=== PATIENT | female | born 1970 | race Caucasian/White ===

== ENCOUNTER 2017-12-17 15:22 | Outpatient (CLI) | payer OTHER ==
--- NOTE | 2017-12-18 09:20 | XRAY Report ---
Procedure Date: 12/17/2017 Accession Number: [id number] / [id number] Procedure: XRS - Hip w/Pelvis 2-3V RT CPT Code: FULL RESULT: EXAM: Hip w/Pelvis 2-3V RT DATE: 12/17/2017 3:47 PM CLINICAL HISTORY: PAIN R HIP COMPARISON: None. TECHNIQUE: 1 view of the pelvis and 1 view of the hip. FINDINGS: Bones: Normal. No fracture or bone lesion. Joints: The bilateral hip, pubis symphysis, and sacroiliac joints are preserved. Soft Tissues: Normal. No soft tissue swelling. Note is made of an intrauterine device projecting over the pelvis. IMPRESSION: Normal pelvis and hip radiography. [facility]
== END 2017-12-17 15:23 | disposition home or self-care (01) ==
LOC: DI.S 15:22
PROVIDERS: ATTEND Internal Medicine
DX: M25.551 Pain in right hip (principal)

== ENCOUNTER 2021-06-24 06:49 | Emergency (ER) | payer OTHER ==
[2021-06-24 07:01] VITALS: BP 136/74
--- NOTE | 2021-06-24 07:23 | ED Physician Documentation ---
History of Present Illness - Stated complaint Stated Complaint: FEMALE - Chief complaint Chief Complaint: General - History obtained from History obtained from: Patient - History of Present Illness Timing: Today Pain level max: 0 Pain level now: 0 - Additonal information Additional information: She is a 50-year-old female who states that she works on the [employer] and that she had a mandated random drug test today and she could not produce a urine sample. She states that she is here to get a diagnosis of "shy bladder syndrome". She states that she does have a history of anxiety, but is not on medications. She has not had difficulty using public restrooms in the past. Review of Systems Constitutional: denies: Fever, Chills Respiratory: denies: Cough GI: denies: Vomiting, Diarrhea : denies: Dysuria, Frequency, Hesitancy, Incontinent Skin: denies: Rash Musculoskeletal: denies: Neck pain, Back pain Neurologic: denies: Headache PD PAST MEDICAL HISTORY - Past Medical History Past Medical History: No - Past Surgical History Past Surgical History: No - Allergies Allergies/Adverse Reactions: Allergies Allergy/AdvReac Type Severity Reaction Status Date / Time No Known Drug Allergies Allergy Verified 06/24/21 07:00 - Living Situation Living Arrangement: reports: At home PD ED PE NORMAL - Vitals Vital signs reviewed: Yes - General General: Alert and oriented X 3, No acute distress - HEENT HEENT: Moist mucous membranes - Respiratory Respiratory: No respiratory distress - Derm Derm: Warm and dry - Neuro Neuro: Alert and oriented X 3 - Psych Psych: Normal mood, Normal affect Results - Vitals Vitals: Vital Signs - 24 hr 06/24/21 06:58 Temperature 36.4 C L Heart Rate 83 Respiratory 20 Rate Blood Pressure 136/74 H O2 Saturation 98 Oxygen O2 Source Room air PD MEDICAL DECISION MAKING - ED course Complexity details: considered differential, d/w patient ED course: 50-year-old female states that she could not urinate for a drug test because she has been stressed about a family emergency. She has not had prior issues utilizing public restrooms. She is not on medication for anxiety. Does not appear to meet criteria for paruesis. There is no emergency medical condition at this time. The patient will contact her primary care provider today for further evaluation of this. This document was made in part using voice recognition software. While efforts are made to proofread this document, sound alike and grammatical errors may occur. Departure - Departure Disposition: 01 Home, Self Care Clinical Impression: Encounter for medical screening examination Condition: Good Instructions: ED Screening Exam Medical Nonurgent Follow-Up: JANET ACKERMAN ARNP [Primary Care Provider] - Within 3 Days Comments: Please contact your primary care doctor for further evaluation and care. Discharge Date/Time: 06/24/21 07:25
== END 2021-06-24 07:25 | disposition home or self-care (01) ==
LOC: ED 06:49
DX: Z02.89 Encounter for other administrative examinations (principal)
CPT/HCPCS: 99281

== ENCOUNTER 2022-09-12 08:02 | Outpatient (CLI) | payer OTHER ==
--- NOTE | 2022-09-13 10:04 | Mammography Report ---
BILATERAL DIGITAL SCREENING MAMMOGRAM 3D/2D: 09/12/2022 CLINICAL: Routine screening. Family history of breast cancer. No prior exams were available for comparison. There are scattered areas of fibroglandular density in both breasts (category b / 25%-50% glandular t issue). No significant masses, calcifications, or other findings are seen in either breast. IMPRESSION: NEGATIVE There is no mammographic evidence of malignancy. A 1 year screening mammogram is recommended. Based on the Tyrer Cuzick model (a risk assessment model) the patients lifetime risk is 8.6% and her 10 year risk is 2.1%. According to the ACR, ACS, and NCCN guidelines, an annual breast MRI exam kerrie g with mammogram is recommended if the patients lifetime risk is 20% or greater. This exam was interpreted at Station ID: [id number]. NOTE: For mammograms, a report in lay terms will be sent to the patient. Approximately 15% of breast malignancies will not be visualized mammographically. In the management of a palpable breast mass, a negative mammogram must not discourage biopsy of a clinically suspicious lesion. Electronically Signed By: Tommy Luna M.D. [facility] [place]:09/12/2022 16:43:09 letter sent: No_Letter ACR BI-RADS Category 1: Negative 3341F PARENCHYMAL PATTERN: (A) - The breast(s) demonstrate(s) scattered fibroglandular densities. BI-RADS CATEGORY: (1) - 1 Mammogram [id number] 1 year screening LATERALITY: (B)
== END 2022-09-12 08:03 | disposition home or self-care (01) ==
LOC: DI.S 08:02
PROVIDERS: ATTEND Nurse Practitioner Family
DX: Z12.31 Encounter for screening mammogram for malignant neoplasm of breast (principal); Z80.3 Family history of malignant neoplasm of breast

== ENCOUNTER 2023-04-20 07:34 | Outpatient (CLI) | payer OTHER | END 2023-04-20 07:35 | disposition EMS.NT | LOC: EMS 07:34 | DX: S99.911A Unspecified injury of right ankle, initial encounter (principal); W18.41XA Slipping, tripping and stumbling without falling due to stepping on object, initial encounter; Y93.01 Activity, walking, marching and hiking; Y92.814 Boat as the place of occurrence of the external cause; Y99.0 Civilian activity done for income or pay ==

== ENCOUNTER 2023-04-20 09:04 | Emergency (ER) | payer OTHER ==
[2023-04-20 09:41] VITALS: BP 135/88; O2SAT 98
--- NOTE | 2023-04-20 10:24 | XRAY Report ---
PROCEDURE: Ankle 3 View RT INDICATIONS: Trauma TECHNIQUE: 3 views of the ankle were acquired. COMPARISON: None. FINDINGS: Bones: Comminuted displaced distal fibular fracture extending to the articular surface with medial w idening of the ankle mortise. No suspicious bony lesions. Soft tissues: No tibiotalar joint effusion. Achilles tendon appears normal. IMPRESSION: Comminuted, displaced distal fibular fracture extending to the articular surface with medial widening of the ankle mortise. Reviewed by: Luis E Cervantes MD on 04/20/2023 10:23 AM PST Approved by: Luis E Cervantes MD on 04/20/2023 10:23 AM PST Station ID: [id number]
--- NOTE | 2023-04-20 11:43 | ED Physician Documentation ---
PD HPI LOWER EXT INJURY - Stated complaint Stated Complaint: RT ANKLE INJ - Chief complaint Chief Complaint: Trauma Ext - History obtained from History obtained from: Patient - Additional information Additional information: She was at work this morning, she works with [employer]. She slipped and fell and had an inversion injury of the right ankle. No other injuries. Pain is moderate declines pain medication on initial evaluation. PD PAST MEDICAL HISTORY - Past Medical History Past Medical History: No - Past Surgical History Past Surgical History: No - Present Medications Home Medications: Ambulatory Orders Medication Instructions Recorded Confirmed HYDROcod/ACETAM 5/325 [Thatcher 5/325] 1 - 2 tab PO Q6H PRN #15 tablet 04/20/23 Knee Scooter 1 unit TD ONCE #1 04/20/23 - Allergies Allergies/Adverse Reactions: Allergies Allergy/AdvReac Type Severity Reaction Status Date / Time No Known Drug Allergies Allergy Verified 06/24/21 07:00 - Social History Does the pt smoke?: Yes Smoking Status: Current every day smoker PD ED PE NORMAL - Vitals Vital signs reviewed: Yes - General General: Alert and oriented X 3, No acute distress - Extremities Extremities: Other (Tender over the lateral malleolus of the right ankle, no proximal fibular tenderness. No medial joint line tenderness. No foot tenderness. Normal pedal pulses and sensation.) - Neuro Neuro: Alert and oriented X 3, Normal speech Results - Vitals Vitals: Vital Signs - 24 hr 04/20/23 09:33 Temperature 36.5 C Heart Rate 70 Respiratory 16 Rate Blood Pressure 135/88 H O2 Saturation 98 Oxygen O2 Source Room air - Rads (name of study) Three-view x-ray of the right ankle demonstrates comminuted displaced distal fibular fracture with widening of the mortise Relevant Findings:: Final report received, EMP independent interpretation of test Procedures - Splint (location) - Minor Right leg Splint applied by: Physician Type of splint: Fiberglass, Posterior Other: Patient tolerated well, No complications, Neurovascular intact, Crutches provided Departure - Departure Disposition: 01 Home, Self Care Clinical Impression: Closed right ankle fracture Qualifiers: Encounter type: initial encounter Qualified Code(s): S82.891A - Other fracture of right lower leg, initial encounter for closed fracture Condition: Good Record reviewed to determine appropriate education?: Yes Instructions: ED Fx Ankle Lateral Malleolus Follow-Up: [facility] [Provider Group] Prescriptions: Knee Scooter 1 unit TD ONCE #1 HYDROcod/ACETAM 5/325 [Thatcher 5/325] 1 - 2 tab PO Q6H PRN #15 tablet PRN Reason: Pain Forms: PCP List, Activity restrictions
== END 2023-04-20 13:08 | disposition home or self-care (01) ==
LOC: ED 09:04
DX: S82.831A Other fracture of upper and lower end of right fibula, initial encounter for closed fracture (principal); W01.0XXA Fall on same level from slipping, tripping and stumbling without subsequent striking against object, initial encounter; Y92.814 Boat as the place of occurrence of the external cause; Y99.0 Civilian activity done for income or pay; F17.200 Nicotine dependence, unspecified, uncomplicated
CPT/HCPCS: 29515; 99283

== ENCOUNTER 2023-04-24 08:00 | Outpatient (CLI) | payer OTHER ==
--- NOTE | 2023-04-24 17:42 | XRAY Report ---
PROCEDURE: Ankle 3 View RT INDICATIONS: RIGHT ANKLE FRACTURE TECHNIQUE: 3 views of the ankle were acquired. COMPARISON: 04/20/2023. FINDINGS: Again noted is an oblique fracture involving the distal right fibula which appears in stable position from prior examination. No new acute osseous abnormality is seen. No significant degenerative change s are present. IMPRESSION: Stable appearance of the oblique distal right fibular fracture. Reviewed by: Jamal Sims MD on 04/24/2023 5:41 PM PST Approved by: Jamal Sims MD on 04/24/2023 5:41 PM PST Station ID: [id number]
== END 2023-04-24 23:59 | disposition home or self-care (01) ==
LOC: DI.WOS 08:00
PROVIDERS: ATTEND Orthopaedic Surgery
DX: S82.431D Displaced oblique fracture of shaft of right fibula, subsequent encounter for closed fracture with routine healing (principal)

== ENCOUNTER 2023-05-03 08:00 | Outpatient (CLI) | payer OTHER ==
--- NOTE | 2023-05-03 13:24 | XRAY Report ---
PROCEDURE: Ankle 3 View RT INDICATIONS: RIGHT ANKLE FRACTURE TECHNIQUE: 3 views of the ankle were acquired. COMPARISON: 04/24/2023. FINDINGS: Bones: Redemonstration of oblique fracture of the distal right fibula. This remains mildly displaced but stable in alignment. No significant periosteal reaction or callus formation at this time. Ankle mortise is preserved. Stable appearance of mild degenerative changes of the tibiotalar joint. Retroca lcaneal enthesophyte. Soft tissues: No tibiotalar joint effusion. Achilles tendon appears normal. IMPRESSION: Stable radiographic appearance of oblique distal right fibular fracture. Reviewed by: Adolph Richter MD on 05/03/2023 1:22 PM PST Approved by: Adolph Richter MD on 05/03/2023 1:22 PM PST Station ID: [id number]
== END 2023-05-03 23:59 | disposition home or self-care (01) ==
LOC: DI.WOS 08:00
PROVIDERS: ATTEND Orthopaedic Surgery
DX: S82.61XD Displaced fracture of lateral malleolus of right fibula, subsequent encounter for closed fracture with routine healing (principal)

== ENCOUNTER 2023-06-07 08:00 | Outpatient (CLI) | payer OTHER ==
--- NOTE | 2023-06-08 07:59 | XRAY Report ---
PROCEDURE: Ankle 3 View RT INDICATIONS: RIGHT ANKLE PAIN TECHNIQUE: 3 views of the ankle were acquired. COMPARISON: X-ray right ankle, 05/03/2023, 04/16/2023 and 04/20/2023. FINDINGS: Bones: There is a oblique fracture of the distal fibula with intra-articular involvement. The alignm ent is stable.. Ankle mortise is normally aligned. No suspicious bony lesions. Soft tissues: No tibiotalar joint effusion. Achilles tendon appears normal. IMPRESSION: Stable appearance of healing distal fibular fracture. Reviewed by: Nolberto Seay MD on 06/08/2023 7:58 AM PST Approved by: Nolberto Seay MD on 06/08/2023 7:58 AM PST Station ID: [id number]
== END 2023-06-07 23:59 | disposition home or self-care (01) ==
LOC: DI.WOS 08:00
PROVIDERS: ATTEND Orthopaedic Surgery
DX: S82.831D Other fracture of upper and lower end of right fibula, subsequent encounter for closed fracture with routine healing (principal)

== ENCOUNTER 2023-08-07 07:45 | Outpatient (CLI) | payer OTHER ==
--- NOTE | 2023-08-07 10:08 | XRAY Report ---
PROCEDURE: Ankle 3 View RT INDICATIONS: RIGHT ANKLE FRACTURE TECHNIQUE: 3 views of the ankle were acquired. COMPARISON: 06/07/2023 FINDINGS: Bones: Again seen oblique fracture of the distal fibula. Alignment is stable compared to prior. Ankl e mortise is normally aligned. No suspicious bony lesions. Soft tissues: No tibiotalar joint effusion. Achilles tendon appears normal. IMPRESSION: Stable appearance of healing distal fibular fracture. Reviewed by: Reji Booker MD on 08/07/2023 10:07 AM PDT Approved by: Reji Booker MD on 08/07/2023 10:07 AM PDT Station ID: [id number]
== END 2023-08-07 23:59 | disposition home or self-care (01) ==
LOC: DI.WOS 07:45
PROVIDERS: ATTEND Orthopaedic Surgery
DX: S82.61XD Displaced fracture of lateral malleolus of right fibula, subsequent encounter for closed fracture with routine healing (principal)